=== PATIENT | male | born 1990 | race Hispanic/Latino ===

== ENCOUNTER 2021-04-15 22:27 | Emergency (ER) | payer SELFPAY ==
[2021-04-16] MEDS ORDERED: Ketorolac Tromethamine 30 MG/ML VIAL ONE (01:01)
[2021-04-16] MEDS ORDERED: Ondansetron ODT 4 MG TAB ONE (01:01)
[2021-04-16] MEDS ORDERED: Gabapentin 300 MG CAP PO SCH (01:30)
== END 2021-04-16 01:27 | disposition home or self-care (01) ==
LOC: ERS 22:27
DX: G62.1 Alcoholic polyneuropathy (principal); F17.290 Nicotine dependence, other tobacco product, uncomplicated
CPT/HCPCS: 36416; 96372; 99284; J1885; Q0162